=== PATIENT | female | born 1960 | race African-American/Black ===

== ENCOUNTER 2016-08-29 14:58 | Emergency (ER) | payer BC ==
--- NOTE | ~2016-08-29 | CR181 ---
[facility] A Service of [facility] & [facility] / [facility] RADIOLOGY TEXT RESULTS PATIENT: Cherelle AGUERO LOCATION: CFTX : 56 UNIT #: [id number] AGE: [address]: Kimi Springer MD SEX: F ORDER DR: [id number] [facility] [address] [facility]. [place], [place] [address] [id number] MR#: [id number] Acc #: [id number] NAME: CHERELLE AGUERO. : 1960 SEX: F STUDY DATE/TIME: 08/29/2016 14:35 UNIT: [facility] ROOM: STUDY DESCRIPTION: CR Lumbar Spine 2 or 3 Views Attending Physician: Kimi Springer M.D. Ordering Physician: Kimi Springer M.D. Primary Care Physician: Primary Care Physician No MEDICAL IMAGING REPORT This report is preliminary unless electronic signature is present EXAM Lumbosacral spine 3 views HISTORY SUPPLIED Low back pain for 2 days. No history of prior back pain or surgery. FINDINGS AP lateral and spot views are submitted. Lumbar alignment is normal. Disc spaces and the body height is maintained. No fractures, bone destruction or periostitis. CONCLUSION Negative Dictated by... Chris Hinds M.D. THIS IS AN ELECTRONICALLY VERIFIED REPORT Chris Hinds M.D. at 09/01/2016 12:00 PM SKY/deni TD: 08/29/2016 17:48 JOB #: [id number] MEDICAL IMAGING REPORT Page 1 of 1 COPY
== END 2016-08-29 15:45 | disposition home or self-care (01) ==
LOC: CFTX 14:58
DX: M54.5 Low back pain (principal)
CPT/HCPCS: 72100; 96372; 99283; 99284; J1100; J1885